=== PATIENT | male | born 1970 | race Caucasian/White ===

== ENCOUNTER 2024-04-12 15:08 | Outpatient (REF) | payer OTHER, SELFPAY | END 2024-04-12 15:09 | disposition home or self-care (01) | LOC: HO.MRI 15:08 | PROVIDERS: PCP Internal Medicine; Visit Provider Internal Medicine | DX: Z13.89 Encounter for screening for other disorder (principal) ==

== ENCOUNTER 2024-04-14 09:23 | Outpatient (AMB) | payer OTHER, SELFPAY ==
--- NOTE | 2024-04-14 09:25 | A.OFFVIS_ITS ---
Vital Signs 04/14/24 09:26 Height 6 ft Weight 215 lb BMI 29.2 BP 152/80 H Blood Pressure Location Rt brachial Position Sitting Intake Visit Reasons: ENP- Snoring / Brain Fog Intake Note: patient presents for snoring, brain fog Allergies No Known Allergies Allergy (Verified 04/14/24 09:30) Medication List - Last Reconciled 04/14/24 by Sulema Fregoso MD escitalopram oxalate (Lexapro) 10 mg PO DAILY lorazepam 1 tab 30 min prior to procedure and can repeat once in 30 minutes orally; HPI Comments Details: 54y/o male comes for evaluation of feeling foggy during daytime. He is concerned about his cognition. He has trouble focusing and comprehending. He feels he cannot focus on conversations. He started with these symptoms 2 -3 years ago. He has been under a lot of stress , his of ALS last year and has been stressful.He has a 22 and 17 year old who lives iwth him . He is self employed. His stress level is better now. He sleeps ok . He has snoring and vivid dreams. He saw a grief counselor for a short time. [facility] Medical History (Updated 04/14/24 @ 10:03 by Sulema Fregoso MD) Snoring Cognitive disorder History of deviated nasal septum Family History (Updated 04/14/24 @ 09:32 by FERN Arteaga) Father Diabetes Social History (Updated 04/14/24 @ 09:31 by FERN Arteaga) Alcohol intake: current Patient Tobacco Use Status: Never used Tobacco Physical Exam Vital Signs: Last Vital Signs BP 152/80 H 04/14/24 09:26 BMI result Body Mass Index 29.2 Const General: cooperative, healthy appearing and anxious Nutritional Appearance: overweight Orientation/consciousness: patient oriented x3 Eyes Pupils: Equal, round and reactive pupils present Neuro General: patient oriented x3, gait normal, tone normal, moves all extremities and no focal motor deficits Cranial nerves: Yes Facial sensation intact/muscles of mastication intact, Yes Equal, round and reactive pupils present, Yes Bilaterally intact EOM present, Yes Nystagmus not present, Yes Normal facial strength present, Yes Midline tongue present, Yes Symmetric palate elevation present and Yes Ability to bilaterally elevate shoulders present Cognition (Neuro): normal cognition Gait exam (Neuro): Normal gait present Motor exam (neuro): 5/5 motor strength present throughout and Normal motor muscle tone present throughout Deep tendon reflexes (DTR's): Right triceps reflex intensity grade: 1+, Left triceps reflex intensity grade: 1+, Rt Biceps (C5, C6): 1+, Left biceps reflex intensity grade: 1+, Right brachioradialis reflex intensity grade: 1+, Left brachioradialis reflex intensity grade: 1+, Right patellar reflex intensity grade: 1+ and Left patellar reflex intensity grade: 1+ Coordination: [id number] test normal Orientation What is the (year) (season) (date) (day) (month)?: year, season, date, day and month Where are we (state) (county) (town or city) (hospital) (floor)?: state, county, town or city, hospital/clinic and floor Registration Name of 3 unrelated objects clearly and slowly, then ask patient to repeat all 3 of them. (1st repeat determines score. Make sure they can repeat all three): object 1, object 2 and object 3 Attention & Calculation (CHOOSE ONE) Spell WORLD backwards (DLROW): 5 letters Recall Ask patient to repeat the 3 items from question #3.: object 1 Language Show patient a wristwatch & ask what it is. Repeat for pencil.: watch and pencil Ask the patient to repeat the phrase 'No ifs, ands, or buts' after you.: correct Ask the patient to 'take a piece of paper with their right hand' 'fold paper in half' 'place paper on floor': take paper in right hand, fold paper in half and place paper on floor Print the sentence 'CLOSE YOUR EYES' on a piece. If patient actually closes eyes then score.: followed written direction Give patient a blank piece of paper & ask to write a sentence. Score if it contains a noun & verb.: sentence contains subject and verb Ask patient to copy figure of intersecting pentagons exactly. Score if all 10 angles & 2 intersects are included.: all 10 angles present & 2 are intersected Score Score: 28 Assessment & Plan Assessment & Plan (1) Cognitive disorder: Comment: ? poorly contolled mood ? sleep apnea Code(s): F09 - Unspecified mental disorder due to known physiological condition Category: Medical (2) Snoring: Code(s): R06.83 - Snoring Category: Medical Plan Home Sleep test to r/o sleep apnea MRI brain - needs OPEN MRI with premedication Labs- Vit B 12 TSH ESR CBC cMP I will trial him on lexapro 10mg qd Orders: Orders MR head/brain wo con Today F09 - Unspecified mental disorder due to known physiological condition RT home sleep study Today G47.10 - Hypersomnia, unspecified, R06.83 - Snoring Medications: New lorazepam 1 tab 30 min prior to procedure and can repeat once in 30 minutes orally; 2 tabs 0RF anxiety escitalopram oxalate (Lexapro) 10 mg PO DAILY 30 tabs 6RF Coding Level of Care Code New Pt Level 4 (39912) Diagnoses Cognitive disorder F09 Snoring R06.83
[2024-04-14 09:26] VITALS: BP 152/80; BMI 29.2
--- OUTSIDE RECORDS SUMMARY | 2024-04-14 09:59 | XMS_ITS | Data Portability ---
Author Organization [facility], [address] Address [address] [place] [address] Assessment No assessment recorded. Plan of Treatment Reminders Order Date Submit Date Provider Last Modified By Organization Details Last Modified Time Details Appointments None recorded. Lab None recorded. Referral None recorded. Procedures None recorded. Surgeries None recorded. Imaging XR, chest, 2 view 2022 023 [facility], [address] [place] [address], [address], 17:24:37 Medication Orders Singulair 10 mg tablet 2022 023 [email or web address] [id number], [address] [place], [address], 16:39:07 Patient TargetsNo targets recorded. Patient Instructions Encounter Date Encounter Id Patient Instructions Last Modified By Organization Details Last Modified Time 04/15/2022 [id number] cough: care instructions Not available 04/15/2022 16:39:07 Based on the findings today we will start a trial of addition medication for allergies . Reviewed symptomatic care instructions, the expected course of these illnesses and explained that coughing can persist for some time. Provided precautions for signs of worsening disease and instructions on contacting us if symptoms worsen. You should follow-up with your PCP in 2-3 days, or at any time if your condition does not improve or worsens. Any acute change should prompt a visit to the nearest Emergency Department. Not available 04/15/2022 16:38:48 Reason for Referral None Reported. Results Created Date Observation Date Name Description Value Unit Range Abnormal Flag Note LastModifiedBy Organization Detail LastModifiedTime 04/15/19 23 04/15/2022 XR, chest , 2 view No observ ation record ed. [email or web address] [address] [place], [address], 04/15/2022 19:42:16 Result Notes None recorded. Problems Name Problem SNOMED Code Status Onset Date Resolution Date Notes Provider Name and Address Organization Details Recorded Time Hyperlipidemia 79529435 Active 2022 JORGE lfowers PA - [facility] 15:44:46 Problem Notes None recorded. Procedures Surgical History Date Name Laterality Status Provider Name and Address Organization Details Recorded Time manipulation of displaced nasal septum completed JORGE GEE PA - [facility] 04/15/2022 15:45:43 Imaging Results Imaging Date Name Status LastModified by Organiz ation Details LastModified Time 04/15/2022 XR, chest, 2 view completed [email or web address] [address] [place], [address], 04/15/2022 19:42:16 Procedure Notes None recorded. Medical Equipment None Reported. Allergies No known drug allergies Medications Name Sig Start Date Stop Date Status Note LastModified by Organization Details LastModified Time benzonatate 200 mg capsule TAKE 1 CAPSULE (ORAL) 3 TIMES PER DAY NEEDED - COUGH FOR 7 DAYS 04/15 completed Not Available Not Available Not Available meloxicam 15 mg tablet TAKE 1 TABLET BY MOUTH ONCE DAILY WITH FOOD OR MILK 04/15 completed Not Available Not Available Not Available prednisone 20 mg tablet TAKE 2 TABLET (ORAL) 1 TIME PER DAY FOR 4 DAYS IN THE MORNING WITH FOOD ONLY. 04/15 completed Not Available Not Available Not Available amlodipine 10 mg tablet TAKE 1 TABLET BY MOUTH EVERY DAY 04/15 completed Not Available Not Available Not Available montelukast 10 mg tablet TAKE 1 TABLET BY MOUTH EVERY DAY FOR 30 DAYS active Not Available Not Available No t Available fluticasone propionate 50 mcg/actuatio n nasal spray,suspen patrick SPRAY 1 SPRAY INTO EACH NOSTRIL EVERY DAY FOR 90 DAYS active Not Available Not Available No t Available rosuvastatin 5 mg tablet TAKE 1 TABLET BY MOUTH EVERY DAY active Not Available Not Available No t Available GaviLyte-G 236 gram-22.74 gram-6.74 gram-5.86 gram oral solution DRINK 240ML EVERY 15 MINUTES UNTIL GONE 04/15 completed Not Available Not Available Not Available Vitals Date Recorded Body height Body mass index (BMI) Body weight Oxygen saturation Oxygen saturation in Arterial blood by Pulse oximetry Heart rate Respiratory rate Body temperature Systolic blood pressure Diastolic blood pressure Provider Name and Address Organization Details Last Updated DateTime 182.88 cm 32.5 kg/m2 788719. 17 g 98 % 98 % 77 /min 16 /min 98.2 [degF] 131 mm[Hg] 82 mm[Hg] JORGE AYERSAU PA - [facility] 15:48:02 Social History Question Answer Notes LastModified by Organizat ion Details LastModified Time Tobacco Smoking Status Never Smoker JORGE GEE lionel PA - [facility] 04/15/2022 15:45:14 What Is Your Level Of Alcohol Consumption? Occasional Information not available 04/15/2022 Are You Currently Employed? Yes Information not available 04/15/2022 Do You Use Any Illicit Or Recreational Drugs? No Information not available 04/15/2022 Have You Recently Traveled Abroad? No Information not available 04/15/2022 Do You Or Have You Ever Used Any Other Forms Of Tobacco Or Nicotine? No Information not available 04/15/2022 Sex: Unknown Functional Status None recorded. Mental Status None recorded. Family History Relationship Description Onset Age of this Age Resolved Age Notes LastModified by Organization Details LastModified Time Father Malignant neoplastic disease Not available 2022 15:45:05 Medical History No medical history recorded. Past Encounters Encounter ID Performer Location Encounter Start Date Encounter Closed Date Diagnosis/Indication Diagnosis SNOMED-CT Code Diagnosis ICD10 Code [id number] [address] [facility] [address] [place] [address] 11/24/2021 08:37:35 11/24/2021 10:54:30 [id number] [address] [place] [address] 08/31/2015 17:49:14 08/31/2015 18:34:03 [id number] [address] [facility] [place] [address] 06/16/2020 11:51:32 06/16/2020 12:59:36 [id number] [address] [facility] [place] [address] 11/15/2020 08:02:03 11/15/2020 08:23:09 [id number] [address] [facility] [place] [address] 05/02/2015 08:54:21 05/02/2015 10:58:07 [id number] [address] [facility] [place] [address] 11/10/2020 08:03:37 11/10/2020 08:22:21 [id number] Norma Marcus [place] [address] [facility] [place] [address] 04/15/2022 15:15:10 04/15/2022 16:45:20 Chronic cough [id number] R05.3 Health Concerns Section Related Observation LastModified by Organization Detai ls LastModified Time None Recorded Concern Status LastModified by Organization Details LastModified Time None Recorded Advance Directives Directive None Recorded Payers Encounter Date Sequence Insurance Name Policy Number Policy Broderick Covered Member ID Broderick Member ID Guarantor Name 06/16/2020 1 [facility] [place] [employer] [place]MEDICAID HMO) [id number] Gonzalo S Placzek [id number] Gonzalo S Placzek 11/10/2020 1 [facility] [place] [employer] NET PLAN (MEDICAID HMO) [id number] Gonzalo S Placzek [id number] Gonzalo S Placzek 11/15/2020 1 [facility] [place] [employer] NET PLAN (MEDICAID HMO) [id number] Gonzalo S Placzek [id number] Gonzalo S Placzek 11/24/2021 1 [facility] [place] [facility] [employer] HEALTH NET PLAN (MEDICAID HMO[place] [id number] Gonzalo S Placzek [id number] Gonzalo S Placzek 04/15/2022 1 [facility] [place] [facility] (MEDICAID HMO) [id number] Gonzalo Spencer [id number] Gonzalo Spencer
== END 2024-04-14 10:08 | disposition home or self-care (01) ==
PROVIDERS: Absent Provider Psychiatry & Neurology Neurology; PCP Internal Medicine; Visit Provider Psychiatry & Neurology Neurology
DX: R41.89 Other symptoms and signs involving cognitive functions and awareness (principal); R06.83 Snoring
CPT/HCPCS: 99204

== ENCOUNTER → 2024-04-14 09:23 | Outpatient (BNVA) | payer OTHER, SELFPAY | PROVIDERS: Absent Provider Psychiatry & Neurology Neurology; PCP Internal Medicine; Visit Provider Psychiatry & Neurology Neurology | DX: F09 Unspecified mental disorder due to known physiological condition (principal); R06.83 Snoring | CPT/HCPCS: 99202 ==